=== PATIENT | male | born 1960 ===

== ENCOUNTER 2017-06-22 20:55 | Inpatient (IN) | payer MEDICAID ==
--- NOTE | 2017-06-22 21:32 | C.PDOC ---
History Of Present Illness 56 year old male with a Hx of HTN presents to the ER with a complaint of left sided back/flank pain for the past week that has worsened today. Patient reports he has hematuria last week. Denies fever or other complaints. Time Seen by Provider: 06/22/17 21:17 Chief Complaint (Nursing): Back Pain History Per: Patient History/Exam Limitations: no limitations Onset/Duration Of Symptoms: Days Current Symptoms Are (Timing): Still Present Quality Of Discomfort: Unable To Describe Previous Symptoms: None Associated Symptoms: None Exacerbating Factor(s): Nothing Recent travel outside of the [place]: No Past Medical History Reviewed: Historical Data, Nursing Documentation, Vital Signs Vital Signs: Last Vital Signs Temp 98.1 F 06/25/17 07:00 Pulse 88 06/25/17 07:00 Resp 20 06/25/17 07:00 BP 117/69 06/25/17 07:00 Pulse Ox 97 06/25/17 07:00 - Medical History PMH: HTN, Hypercholesterolemia Family History: States: Unknown Family Hx - Social History Hx Alcohol Use: No Hx Substance Use: No - Immunization History Hx Tetanus Toxoid Vaccination: No Hx Influenza Vaccination: No Hx Pneumococcal Vaccination: No Review Of Systems Constitutional: Negative for: Fever Cardiovascular: Negative for: Chest Pain, Palpitations Respiratory: Negative for: Cough, Shortness of Breath Genitourinary: Positive for: Hematuria Musculoskeletal: Positive for: Back Pain (Left) Physical Exam - Physical Exam Appears: Non-toxic Skin: Normal Color, Warm, Dry Head: Atraumatic, Normacephalic Eye(s): bilateral: Normal Inspection Oral Mucosa: Moist Chest: Symmetrical, No Tenderness Cardiovascular: Rhythm Regular Respiratory: Normal Breath Sounds, No Rales, No Rhonchi, No Wheezing Gastrointestinal/Abdominal: Soft, No Tenderness Back: Other (Left sided flank tenderness) Neurological/Psych: Oriented x3, Normal Speech ED Course And Treatment - Laboratory Results Result Diagrams: 06/25/17 07:23 06/25/17 07:23 O2 Sat by Pulse Oximetry: 97 (Room air) Pulse Ox Interpretation: Normal Medical Decision Making Medical Decision Making: ro renal colic, uti- labs imaging pending Plan: * CT abd/pel * Blood work * Urinalysis * Morphine ct shows e/o of diverticulitis- discussedw tih pmd. persistent pain, needs iv pain meds, and admisison. Disposition - Disposition Disposition: HOSPITALIZED Disposition Time: 01:00 Condition: STABLE - Clinical Impression Clinical Impression: Sigmoid diverticulitis - Scribe Statement The provider has reviewed the documentation as recorded by the Scriblynette Morin All medical record entries made by the Scribe were at my direction and personally dictated by me. I have reviewed the chart and agree that the record accurately reflects my personal performance of the history, physical exam, medical decision making, and the department course for this patient. I have also personally directed, reviewed, and agree with the discharge instructions and disposition. Decision To Admit - Pt Status Changed To: Hospital Disposition Of: Inpatient - Admit Certification Admit to Inpatient:: After my assessment, the patient will require hospitalization for at least two midnights. This is because of the severity of symptoms shown, intensity of services needed, and/or the medical risk in this patient being treated as an outpatient. - InPatient: Physician Admission Certification:: needs iv antibiotics persistent pain - . Bed Request Type: Regular Admitting Physician: Rell Hernández Patient Diagnosis: Sigmoid diverticulitis
[2017-06-22] MEDS ORDERED: Morphine 4 MG/ML VIAL ONE (21:33)
[2017-06-22 21:53] LABS: BASO % 0.4 % (0.0-2.0); EOS # 0.8 K/uL (0.0-0.7); EOS % 6.6 % (0.0-4.0); HEMOGLOBIN 15.3 g/dL (12.0-18.0); LYMPH # 1.9 K/uL (1.0-4.3); LYMPH % 16.6 % (20.0-40.0); MEAN CELL VOLUME 100.6 fL (80.0-94.0); MEAN CORPUSCULAR HGB CONC 34.8 g/dL (33.0-37.0); MEAN PLATELET VOLUME 10.1 fL (7.2-11.7); MONO # 0.7 K/uL (0.0-0.8); MONO % 6.1 % (0.0-10.0); NEUT # 8.1 K/uL (1.8-7.0); NEUT % 70.3 % (50.0-75.0); NRBC % 0.1 % (0.0-2.0); RBC 4.36 Mil/uL (4.40-5.90); WHITE BLOOD COUNT 11.5 K/uL (4.8-10.8)
[2017-06-22 22:00] LABS: ALB/GLOB RATIO 1.1 (1.0-2.1); ALBUMIN 4.1 g/dL (3.5-5.0); ALT/SGPT 36 U/L (21-72); AST/SGOT 21 U/L (17-59); BLOOD UREA NITROGEN 25 mg/dL (9-20); CALCIUM 9.8 mg/dl (8.6-10.4); GFR AFRICAN-AMERICAN > 60; GFR NON-AFRICAN AMERICAN 57; LIPASE 344 U/L (23-300)
[2017-06-22 22:45] LABS: SQUAMOUS EPITHIAL < 1 /hpf (0-5); URINE BACTERIA RARE (<OCC); URINE BILIRUBIN NEGATIVE (NEGATIVE); URINE BLOOD NEGATIVE (NEGATIVE); URINE CLARITY Hazy (Clear); URINE COLOR Amber (YELLOW); URINE GLUCOSE (UA) 1+ mg/dL (Normal); URINE LEUKOCYTE ESTERASE NEG Leu/uL (Negative); URINE PROTEIN 2+ mg/dL (NEGATIVE); URINE UROBILINOGEN NORMAL mg/dL (0.2-1.0)
--- NOTE | 2017-06-22 23:16 | CT ---
EXAM: CT Abdomen and Pelvis Without Intravenous Contrast CLINICAL HISTORY: 56 years old, male; Pain; Abdominal pain; Flank; Lower; Additional info: Abd pain TECHNIQUE: Axial computed tomography images of the abdomen and pelvis without intravenous contrast. All CT scans at this facility use one or more dose reduction techniques, viz.: automated exposure control; ma/kV adjustment per patient size (including targeted exams where dose is matched to indication; i.e. head); or iterative reconstruction technique. Coronal and sagittal reformatted images were created and reviewed. COMPARISON: No relevant prior studies available. FINDINGS: Lung bases: Unremarkable. No mass. No consolidation. Heart: Mild cardiomegaly. ABDOMEN: Liver: Hepatic steatosis. Gallbladder and bile ducts: Unremarkable. No calcified stones. No ductal dilation. Pancreas: Unremarkable. No ductal dilation. Spleen: Unremarkable. No splenomegaly. Adrenals: Unremarkable. No mass. Kidneys and ureters: Unremarkable. No obstructing stones. No hydronephrosis. Stomach and bowel: Sigmoid diverticulosis. Pericolonic inflammation. PELVIS: Appendix: No findings to suggest acute appendicitis. Bladder: Nonspecific bladder wall thickening. No stones. Reproductive: Enlarged prostate. Left hydrocele. ABDOMEN and PELVIS: Intraperitoneal space: Unremarkable. No free air. No significant fluid collection. Bones/joints: No acute fracture. No dislocation. Soft tissues: Unremarkable. Vasculature: Atherosclerotic vascular disease. No abdominal aortic aneurysm. Lymph nodes: Mildly enlarged pericolonic lymph nodes. IMPRESSION: 1. CT findings consistent with acute sigmoid diverticulitis. 2. Remainder of findings as above.
[2017-06-22] MEDS ORDERED: Piperacillin/Tazobact 3.375 gm 100 ML IVPB STA (23:17)
[2017-06-22] MEDS: Sodium Chloride 0.9% 1,000 ML IV SCH (23:30)
[2017-06-22] MEDS ORDERED: Piperacill/Tazo 3.375gm in Dex 3.375 GM/50 ML BAG IVPB STA (23:44)
[2017-06-22] MEDS ORDERED: Sodium Chloride 0.9% 1,000 ML ONE (23:48)
[2017-06-23] MEDS ORDERED: NABUMETONE 500 MG PO PRN ×2 (00:22→12:57)
[2017-06-23] MEDS: Morphine 4 MG/ML VIAL IVP PRN ×2 (02:05→09:58)
[2017-06-23] MEDS: metroNIDAZOLE IV 500 mg/100 ml 500 MG/100 ML BAG IVPB SCH ×3 (05:00→21:32)
[2017-06-23] MEDS: Piperacillin/Tazobact 3.375 GM in Sodium Chloride 100 ML IVPB SCH ×3 (06:10→18:48)
[2017-06-23 07:58] LABS: BASO % 0.3 % (0.0-2.0); EOS # 0.6 K/uL (0.0-0.7); EOS % 5.9 % (0.0-4.0); HEMOGLOBIN 14.2 g/dL (12.0-18.0); LYMPH # 2.4 K/uL (1.0-4.3); LYMPH % 23.3 % (20.0-40.0); MEAN CELL VOLUME 100.8 fL (80.0-94.0); MEAN CORPUSCULAR HEMOGLOBIN 35.7 pg (27.0-31.0); MEAN CORPUSCULAR HGB CONC 35.4 g/dL (33.0-37.0); MONO # 0.9 K/uL (0.0-0.8); MONO % 8.9 % (0.0-10.0); NEUT # 6.3 K/uL (1.8-7.0); NEUT % 61.6 % (50.0-75.0); NRBC % 0.1 % (0.0-2.0); RBC 3.98 Mil/uL (4.40-5.90); RED CELL DISTRIBUTION WIDTH 13.2 % (11.5-14.5); WHITE BLOOD COUNT 10.3 K/uL (4.8-10.8)
[2017-06-23 08:31] LABS: ALB/GLOB RATIO 1.2 (1.0-2.1); ALBUMIN 3.8 g/dL (3.5-5.0); ALT/SGPT 21 U/L (21-72); AST/SGOT 27 U/L (17-59); BLOOD UREA NITROGEN 21 mg/dL (9-20); CALCIUM 8.7 mg/dl (8.6-10.4); GFR AFRICAN-AMERICAN > 60; GFR NON-AFRICAN AMERICAN > 60; HDL CHOLESTEROL 26 mg/dL (30-70)
[2017-06-23 08:42] LABS: LDL CHOLESTEROL 126 mg/dL (0-129)
[2017-06-23] MEDS: Pantoprazole 40 mg EC Tab PO SCH (09:58)
[2017-06-23] MEDS: Enoxaparin 40 mg Syringe SC SCH (10:00)
[2017-06-23] MEDS: Sodium Chloride 0.9% 1,000 ML IV SCH (10:01)
--- NOTE | 2017-06-23 11:04 | CP.PCM.CON ---
History of Present Illness - History of Present Illness History of Present Illness: This is a 56 year old man with abdominal pain. Patient presented 06/22/17 with a one week history of left flank pain, which became progressively worse on the day of admission. He denies having nausea, vomiting, fever, difficulty swallowing, and heartburn. He reports having diarrhea after eating, three or four times a day. He denies having constipation and rectal bleeding. On evaluation in the ER, patient was afebrile. The WBC was slightly elevated at 11,500. CT scan of the abdomen showed sigmoid diverticulosis and pericolonic inflammatory changes consistent with diverticulitis. Review of Systems - Review of Systems All systems: reviewed and no additional remarkable complaints except - Constitutional Constitutional: absent: Fever - Cardiovascular Cardiovascular: absent: Chest Pain, Palpitations - Respiratory Respiratory: absent: Cough, Dyspnea - Gastrointestinal Gastrointestinal: Abdominal Pain, Diarrhea. absent: Constipation, Dysphagia, Heartburn, Hematochezia, Nausea, Vomiting - Genitourinary Genitourinary: Hematuria - Musculoskeletal Musculoskeletal: Back Pain Past Patient History - Past Medical History & Family History Past Medical History?: Yes - Past Social History Smoking Status: Never Smoked - CARDIAC Hx Cardiac Disorders: Yes Hx Hypercholesterolemia: Yes Hx Hypertension: Yes - PULMONARY Hx Respiratory Disorders: No - NEUROLOGICAL Hx Neurological Disorder: No - HEENT Hx HEENT Problems: No - RENAL Hx Chronic Kidney Disease: No - ENDOCRINE/METABOLIC Hx Endocrine Disorders: Yes Hx Diabetes Mellitus Type 2: Yes - HEMATOLOGICAL/ONCOLOGICAL Hx Blood Disorders: No - INTEGUMENTARY Hx Dermatological Problems: No - MUSCULOSKELETAL/RHEUMATOLOGICAL Hx Musculoskeletal Disorders: Yes Hx Falls: Yes Other/Comment: Lt rib fractured 04/2017 - GASTROINTESTINAL Hx Gastrointestinal Disorders: No - GENITOURINARY/GYNECOLOGICAL Hx Genitourinary Disorders: No - PSYCHIATRIC Hx Psychophysiologic Disorder: No Hx Substance Use: No - SURGICAL HISTORY Hx Surgeries: No - ANESTHESIA Hx Anesthesia: No Meds Allergies/Adverse Reactions: Allergies Allergy/AdvReac Type Severity Reaction Status Date / Time No Known Allergies Allergy Verified 06/22/17 21:13 - Medications Medications: Current Medications Aspirin (Ecotrin) 81 mg PO DAILY [facility] Last Admin: 06/23/17 09:57 Dose: 81 mg Baclofen (Lioresal) 10 mg PO Q12 PRN PRN Reason: Pain, moderate (4-7) Enoxaparin Sodium (Lovenox) 40 mg SC DAILY [facility] Last Admin: 06/23/17 10:00 Dose: 40 mg Gabapentin (Neurontin) 100 mg PO [facility] Glimepiride (Amaryl) 2 mg PO DAILY [facility] Last Admin: 06/23/17 10:23 Dose: Not Given Home Med (Nabumetone [Relafen]) 500 mg PO Q12 PRN PRN Reason: Pain, Mild (1-3) Hydralazine HCl (Apresoline) 10 mg PO DAILY [facility] Last Admin: 06/23/17 09:59 Dose: 10 mg Sodium Chloride (Sodium Chloride 0.9%) 1,000 mls @ 100 mls/hr IV .Q10H [facility] Last Admin: 06/23/17 10:01 Dose: 100 mls/hr Metronidazole (Flagyl) 500 mg in 100 mls @ 100 mls/hr IVPB Q8 [facility] PRN Reason: Protocol Last Admin: 06/23/17 05:00 Dose: 100 mls/hr Piperacillin Sod/Tazobactam (Sod 3.375 gm/ Sodium Chloride) 100 mls @ 200 mls/ hr IVPB Q6H [facility] PRN Reason: Protocol Last Admin: 06/23/17 06:10 Dose: 200 mls/hr Lisinopril (Zestril) 20 mg PO DAILY [facility] Last Admin: 06/23/17 10:23 Dose: 20 mg Metoprolol Tartrate (Lopressor) 50 mg PO DAILY [facility] Last Admin: 06/23/17 09:58 Dose: 50 mg Morphine Sulfate (Morphine) 3 mg IVP Q6 PRN PRN Reason: Pain, severe (8-10) Last Admin: 06/23/17 09:58 Dose: 3 mg Pantoprazole Sodium (Protonix Ec Tab) 40 mg PO DAILY [facility] Last Admin: 06/23/17 09:58 Dose: 40 mg Pneumococcal Polyvalent Vaccine (Pneumovax 23 Vaccine) 0.5 ml IM .ONCE ONE Stop: 06/24/17 10:01 Sertraline HCl (Zoloft) 50 mg PO [facility] Physical Exam - Constitutional Appears: No Acute Distress - Head Exam Head Exam: ATRAUMATIC - Eye Exam Eye Exam: EOMI, PERRL - Neck Exam Neck exam: Negative for: Lymphadenopathy, Thyromegaly - Respiratory Exam Respiratory Exam: NORMAL BREATHING PATTERN. absent: Rales, Rhonchi, Wheezes - Cardiovascular Exam Cardiovascular Exam: REGULAR RHYTHM, +S1, +S2. absent: Gallop, Rubs, Systolic Murmur - GI/Abdominal Exam GI & Abdominal Exam: Normal Bowel Sounds, Soft. absent: Mass, Organomegaly, Tenderness - Rectal Exam Rectal Exam: Deferred - Extremities Exam Extremities exam: Negative for: calf tenderness, pedal edema Results - Vital Signs Recent Vital Signs: Last Vital Signs Temp 98.2 F 06/23/17 07:37 Pulse 86 06/23/17 07:37 Resp 20 06/23/17 07:37 BP 168/93 H 06/23/17 07:37 Pulse Ox 96 06/23/17 07:37 - Labs Result Diagrams: 06/23/17 07:46 06/23/17 07:46 Labs: Laboratory Results - last 24 hr 06/22/17 06/22/17 06/22/17 21:44 21:44 21:44 WBC 11.5 H RBC 4.36 L Hgb 15.3 Hct 43.9 MCV 100.6 H MCH 35.0 H MCHC 34.8 RDW 13.0 Plt Count 251 MPV 10.1 Neut % (Auto) 70.3 Lymph % (Auto) 16.6 L [place] % (Auto) 6.1 Eos % (Auto) 6.6 H Baso % (Auto) 0.4 Neut # (Auto) 8.1 H Lymph # (Auto) 1.9 [place] # (Auto) 0.7 Eos # (Auto) 0.8 H Baso # (Auto) 0.0 PT 11.0 INR 1.0 APTT 31 Sodium 143 Potassium 3.9 Chloride 100 Carbon Dioxide 27 Anion Gap 20 BUN 25 H Creatinine 1.3 Est GFR ( Amer) > 60 Est GFR (Non-Af Amer) 57 Random Glucose 167 H Calcium 9.8 Total Bilirubin 0.9 AST 21 ALT 36 Alkaline Phosphatase 89 Total Protein 7.7 Albumin 4.1 Globulin 3.6 Albumin/Globulin Ratio 1.1 Triglycerides Cholesterol LDL Cholesterol Direct HDL Cholesterol Lipase 344 H Urine Color Urine Clarity Urine pH Ur Specific [place] Urine Protein Urine Glucose (UA) Urine Ketones Urine Blood Urine Nitrate Urine Bilirubin Urine Urobilinogen Ur Leukocyte Esterase Urine WBC (Auto) Urine RBC (Auto) Ur Squamous Epith Cells Urine Bacteria Hyaline Casts 06/22/17 06/23/17 06/23/17 22:36 07:46 07:46 WBC 10.3 RBC 3.98 L Hgb 14.2 Hct 40.1 MCV 100.8 H MCH 35.7 H MCHC 35.4 RDW 13.2 Plt Count 227 MPV 10.0 Neut % (Auto) 61.6 Lymph % (Auto) 23.3 [place] % (Auto) 8.9 Eos % (Auto) 5.9 H Baso % (Auto) 0.3 Neut # (Auto) 6.3 Lymph # (Auto) 2.4 [place] # (Auto) 0.9 H Eos # (Auto) 0.6 Baso # (Auto) 0.0 PT INR APTT Sodium 144 Potassium 4.0 Chloride 101 Carbon Dioxide 29 Anion Gap 19 BUN 21 H Creatinine 1.2 Est GFR ( Amer) > 60 Est GFR (Non-Af Amer) > 60 Random Glucose 148 H Calcium 8.7 Total Bilirubin 0.8 AST 27 ALT 21 D Alkaline Phosphatase 77 Total Protein 7.0 Albumin 3.8 Globulin 3.2 Albumin/Globulin Ratio 1.2 Triglycerides 209 H Cholesterol 185 LDL Cholesterol Direct 126 HDL Cholesterol 26 L Lipase Urine Color Aleksandra Urine Clarity Hazy Urine pH 5.0 Ur Specific Barton 1.025 Urine Protein 2+ H Urine Glucose (UA) 1+ H Urine Ketones Negative Urine Blood Negative Urine Nitrate Negative Urine Bilirubin Negative Urine Urobilinogen Normal Ur Leukocyte Esterase Neg Urine WBC (Auto) 1 Urine RBC (Auto) 3 Ur Squamous Epith Cells < 1 Urine Bacteria Rare Hyaline Casts 11-20 H Assessment & Plan (1) Sigmoid diverticulitis Assessment and Plan: Patient presented with a one-week history of abdominal pain, leukocytosis, changes of diverticulitis on CT scan. Zosyn and metronidazole have been started. Patient also reports having diarrhea, and stool studies will be ordered. Clear liquid diet will be ordered. Status: Acute
[2017-06-23 13:59] LABS: FERRITIN 72.1 ng/mL
[2017-06-23 14:03] LABS: IRON 99 ug/dL (49-181)
[2017-06-23 14:13] LABS: % IRON SATURATION 32 (20-55); TOTAL IRON BINDING CAPACITY 311 ug/dL (250-450)
[2017-06-23 14:30] LABS: FOLATE 7.6 ng/mL
[2017-06-23] MEDS ORDERED: Morphine 4 MG/ML VIAL IVP PRN (16:35)
--- NOTE | 2017-06-23 20:54 | CP.PCM.CON ---
History of Present Illness - History of Present Illness History of Present Illness: INFECTIOUS DISEASE CONSULT. HPI; 56 year old man with abdominal pain. Patient presented 06/22/17 with a one week history of left flank pain,and back pain which became progressively worse 3 days prior to admission. He denies having nausea, vomiting, fever, difficulty swallowing, and heartburn. He reports having diarrhea after eating, three or four times a day. He denies having constipation and rectal bleeding.Patient states the Back pain started suddenly, and is now radiating to the left flank region. Patient denies any tingling or loss of sensation. On evaluation in the ER, patient was afebrile. The WBC was slightly elevated at 11,500. CT scan of the abdomen showed ACUTE SIGMOID DIVERTICULITIS/AND ENLARGED PROSTATE/HYDROCEOLE. PATIENT WAS EMPIRICALLY STARTED ON IV ZOSYN 3.375 EVERY 6 HOURLY AND iv fLAGYL 500 EVERY 8.HRLY. INFECTIOUS DISEASE CONSUL REQUESTED BY PMD FOR ABDOMINAL PAINS,BACK PAIN AND DIVERTICULITIS. PATIENT DENIES LIFTING UP ANY HEAVY WEIGHT. PATIENT ALSO COMPLAINS OF DYSURIA AND HEMATURIA ON PRESENTATION. PATIENT DENIES HISTORY OFF KIDNEY STONES. PATIENT DENIES ANY URI OR SORE THROAT. PATIENT DENIES ANY COUGH/OR SHORTNESS OF BREATH.DENIES ANY CHEST PAIN OR PALPITATIONS. NO HISTORY OFF RECENT SICK CONTACTS OR RECENT TRAVEL. PMH: HTN, Hypercholesterolemia Family History: States: Unknown Family Hx - Social History Hx Alcohol Use: No Hx Substance Use: No - Immunization History Hx Tetanus Toxoid Vaccination: No Hx Influenza Vaccination: No Hx Pneumococcal Vaccination: No Review Of Systems Constitutional: Negative for: Fever Cardiovascular: Negative for: Chest Pain, Palpitations Respiratory: Negative for: Cough, Shortness of Breath Genitourinary: Positive for: Hematuria Musculoskeletal: Positive for: Back Pain (Left) Review of Systems - Constitutional Constitutional: absent: Chills, Fever - EENT Eyes: absent: Blurred Vision, Change in Vision Ears: absent: Ear Discharge, Ear Pain Nose/Mouth/Throat: absent: Mouth Lesions - Cardiovascular Cardiovascular: absent: Chest Pain, Dyspnea - Respiratory Respiratory: absent: Cough (esr IS ONLY 41) - Gastrointestinal Gastrointestinal: Abdominal Pain (LEFT FLANK/LEFT LOWER QUADRANT.), Diarrhea. absent: Hematemesis, Melena, Nausea, Vomiting - Genitourinary Genitourinary: Dysuria, Flank Pain, Hematuria. absent: Freq UTI, Hx /Renal Surgery - Neurological Neurological: absent: Focal Weakness, Paresthesias, Radicular Pain, Sensory Deficit, Weakness - Hematologic/Lymphatic Hematologic: As Per HPI. absent: Easy Bleeding, Easy Bruising, Lymphadenopathy Past Patient History - Past Medical History & Family History Past Medical History?: Yes - Past Social History Smoking Status: Never Smoked - CARDIAC Hx Cardiac Disorders: Yes Hx Hypercholesterolemia: Yes Hx Hypertension: Yes - PULMONARY Hx Respiratory Disorders: No - NEUROLOGICAL Hx Neurological Disorder: No - HEENT Hx HEENT Problems: No - RENAL Hx Chronic Kidney Disease: No - ENDOCRINE/METABOLIC Hx Endocrine Disorders: Yes Hx Diabetes Mellitus Type 2: Yes - HEMATOLOGICAL/ONCOLOGICAL Hx Blood Disorders: No - INTEGUMENTARY Hx Dermatological Problems: No - MUSCULOSKELETAL/RHEUMATOLOGICAL Hx Musculoskeletal Disorders: Yes Hx Falls: Yes Other/Comment: Lt rib fractured 04/2017 - GASTROINTESTINAL Hx Gastrointestinal Disorders: No - GENITOURINARY/GYNECOLOGICAL Hx Genitourinary Disorders: No - PSYCHIATRIC Hx Psychophysiologic Disorder: No Hx Substance Use: No - SURGICAL HISTORY Hx Surgeries: No - ANESTHESIA Hx Anesthesia: No Meds Allergies/Adverse Reactions: Allergies Allergy/AdvReac Type Severity Reaction Status Date / Time No Known Allergies Allergy Verified 06/22/17 21:13 - Medications Medications: Current Medications Aspirin (Ecotrin) 81 mg PO DAILY [facility] Last Admin: 06/23/17 09:57 Dose: 81 mg Baclofen (Lioresal) 10 mg PO Q12 PRN PRN Reason: Pain, moderate (4-7) Enoxaparin Sodium (Lovenox) 40 mg SC DAILY [facility] Last Admin: 06/23/17 10:00 Dose: 40 mg Gabapentin (Neurontin) 100 mg PO HS [facility] Glimepiride (Amaryl) 2 mg PO DAILY [facility] Last Admin: 06/23/17 10:23 Dose: Not Given Home Med (Nabumetone [Relafen]) 500 mg PO Q12 PRN PRN Reason: Pain, Mild (1-3) Hydralazine HCl (Apresoline) 50 mg PO Q8 [facility] Metronidazole (Flagyl) 500 mg in 100 mls @ 100 mls/hr IVPB Q8 [facility] PRN Reason: Protocol Last Admin: 06/23/17 14:38 Dose: 100 mls/hr Piperacillin Sod/Tazobactam (Sod 3.375 gm/ Sodium Chloride) 100 mls @ 200 mls/ hr IVPB Q6H [facility] PRN Reason: Protocol Last Admin: 06/23/17 18:48 Dose: 200 mls/hr Lisinopril (Zestril) 20 mg PO DAILY [facility] Last Admin: 06/23/17 10:23 Dose: 20 mg Metoprolol Succinate (Toprol Xl) 50 mg PO Q12 [facility] Pantoprazole Sodium (Protonix Ec Tab) 40 mg PO DAILY [facility] Last Admin: 06/23/17 09:58 Dose: 40 mg Pneumococcal Polyvalent Vaccine (Pneumovax 23 Vaccine) 0.5 ml IM .ONCE ONE Stop: 06/24/17 10:01 Sertraline HCl (Zoloft) 50 mg PO HS [facility] Physical Exam - Constitutional Appears: No Acute Distress - Head Exam Head Exam: NORMAL INSPECTION - Eye Exam Eye Exam: EOMI, PERRL. absent: Scleral icterus - ENT Exam ENT Exam: Normal Oropharynx - Respiratory Exam Respiratory Exam: Clear to Auscultation Bilateral - Cardiovascular Exam Cardiovascular Exam: REGULAR RHYTHM, +S1, +S2 - GI/Abdominal Exam GI & Abdominal Exam: Normal Bowel Sounds, Soft, Tenderness (LLQ. sTUDIES PENDING). absent: Organomegaly - Extremities Exam Extremities exam: Positive for: pedal pulses present. Negative for: calf tenderness, pedal edema - Back Exam Back exam: absent: CVA tenderness (L) - Neurological Exam Neurological exam: Alert, CN II-XII Intact, Oriented x3, Reflexes Normal - Psychiatric Exam Psychiatric exam: Normal Mood - Skin Skin Exam: Normal Color, Warm Results - Vital Signs Recent Vital Signs: Last Vital Signs Temp 97.6 F 06/23/17 19:00 Pulse 84 06/23/17 19:00 Resp 20 06/23/17 19:00 BP 156/91 H 06/23/17 19:40 Pulse Ox 98 06/23/17 19:00 - Labs Result Diagrams: 06/24/17 08:01 06/24/17 08:01 Labs: Laboratory Results - last 24 hr 06/22/17 06/22/17 06/22/17 21:44 21:44 21:44 WBC 11.5 H RBC 4.36 L Hgb 15.3 Hct 43.9 MCV 100.6 H MCH 35.0 H MCHC 34.8 RDW 13.0 Plt Count 251 MPV 10.1 Neut % (Auto) 70.3 Lymph % (Auto) 16.6 L [place] % (Auto) 6.1 Eos % (Auto) 6.6 H Baso % (Auto) 0.4 Neut # (Auto) 8.1 H Lymph # (Auto) 1.9 [place] # (Auto) 0.7 Eos # (Auto) 0.8 H Baso # (Auto) 0.0 Retic Count PT 11.0 INR 1.0 APTT 31 Sodium 143 Potassium 3.9 Chloride 100 Carbon Dioxide 27 Anion Gap 20 BUN 25 H Creatinine 1.3 Est GFR ( Amer) > 60 Est GFR (Non-Af Amer) 57 POC Glucose (mg/dL) Random Glucose 167 H Calcium 9.8 Iron TIBC % Saturation Ferritin Total Bilirubin 0.9 AST 21 ALT 36 Alkaline Phosphatase 89 Total Protein 7.7 Albumin 4.1 Globulin 3.6 Albumin/Globulin Ratio 1.1 Triglycerides Cholesterol LDL Cholesterol Direct HDL Cholesterol Lipase 344 H Vitamin B12 Folate Urine Color Urine Clarity Urine pH Ur Specific [place] Urine Protein Urine Glucose (UA) Urine Ketones Urine Blood Urine Nitrate Urine Bilirubin Urine Urobilinogen Ur Leukocyte Esterase Urine WBC (Auto) Urine RBC (Auto) Ur Squamous Epith Cells Urine Bacteria Hyaline Casts 06/22/17 06/23/17 06/23/17 22:36 07:21 07:46 WBC 10.3 RBC 3.98 L Hgb 14.2 Hct 40.1 MCV 100.8 H MCH 35.7 H MCHC 35.4 RDW 13.2 Plt Count 227 MPV 10.0 Neut % (Auto) 61.6 Lymph % (Auto) 23.3 [place] % (Auto) 8.9 Eos % (Auto) 5.9 H Baso % (Auto) 0.3 Neut # (Auto) 6.3 Lymph # (Auto) 2.4 [place] # (Auto) 0.9 H Eos # (Auto) 0.6 Baso # (Auto) 0.0 Retic Count PT INR APTT Sodium Potassium Chloride Carbon Dioxide Anion Gap BUN Creatinine Est GFR ( Amer) Est GFR (Non-Af Amer) POC Glucose (mg/dL) 136 H Random Glucose Calcium Iron TIBC % Saturation Ferritin Total Bilirubin AST ALT Alkaline Phosphatase Total Protein Albumin Globulin Albumin/Globulin Ratio Triglycerides Cholesterol LDL Cholesterol Direct HDL Cholesterol Lipase Vitamin B12 Folate Urine Color Aleksandra Urine Clarity Hazy Urine pH 5.0 Ur Specific [place] 1.025 Urine Protein 2+ H Urine Glucose (UA) 1+ H Urine Ketones Negative Urine Blood Negative Urine Nitrate Negative Urine Bilirubin Negative Urine Urobilinogen Normal Ur Leukocyte Esterase Neg Urine WBC (Auto) 1 Urine RBC (Auto) 3 Ur Squamous Epith Cells < 1 Urine Bacteria Rare Hyaline Casts 11-20 H 06/23/17 06/23/17 06/23/17 07:46 11:14 12:12 WBC RBC Hgb Hct MCV MCH MCHC RDW Plt Count MPV Neut % (Auto) Lymph % (Auto) [place] % (Auto) Eos % (Auto) Baso % (Auto) Neut # (Auto) Lymph # (Auto) [place] # (Auto) Eos # (Auto) Baso # (Auto) Retic Count 0.7 PT INR APTT Sodium 144 Potassium 4.0 Chloride 101 Carbon Dioxide 29 Anion Gap 19 BUN 21 H Creatinine 1.2 Est GFR ( Amer) > 60 Est GFR (Non-Af Amer) > 60 POC Glucose (mg/dL) 161 H Random Glucose 148 H Calcium 8.7 Iron TIBC % Saturation Ferritin 72.1 Total Bilirubin 0.8 AST 27 ALT 21 D Alkaline Phosphatase 77 Total Protein 7.0 Albumin 3.8 Globulin 3.2 Albumin/Globulin Ratio 1.2 Triglycerides 209 H Cholesterol 185 LDL Cholesterol Direct 126 HDL Cholesterol 26 L Lipase Vitamin B12 446 Folate 7.6 Urine Color Urine Clarity Urine pH Ur Specific [place] Urine Protein Urine Glucose (UA) Urine Ketones Urine Blood Urine Nitrate Urine Bilirubin Urine Urobilinogen Ur Leukocyte Esterase Urine WBC (Auto) Urine RBC (Auto) Ur Squamous Epith Cells Urine Bacteria Hyaline Casts 06/23/17 06/23/17 13:22 16:32 WBC RBC Hgb Hct MCV MCH MCHC RDW Plt Count MPV Neut % (Auto) Lymph % (Auto) [place] % (Auto) Eos % (Auto) Baso % (Auto) Neut # (Auto) Lymph # (Auto) [place] # (Auto) Eos # (Auto) Baso # (Auto) Retic Count PT INR APTT Sodium Potassium Chloride Carbon Dioxide Anion Gap BUN Creatinine Est GFR ( Amer) Est GFR (Non-Af Amer) POC Glucose (mg/dL) 188 H Random Glucose Calcium Iron 99 TIBC 311 % Saturation 32 Ferritin Total Bilirubin AST ALT Alkaline Phosphatase Total Protein Albumin Globulin Albumin/Globulin Ratio Triglycerides Cholesterol LDL Cholesterol Direct HDL Cholesterol Lipase Vitamin B12 Folate Urine Color Urine Clarity Urine pH Ur Specific [place] Urine Protein Urine Glucose (UA) Urine Ketones Urine Blood Urine Nitrate Urine Bilirubin Urine Urobilinogen Ur Leukocyte Esterase Urine WBC (Auto) Urine RBC (Auto) Ur Squamous Epith Cells Urine Bacteria Hyaline Casts - Imaging and Cardiology CT scan - abdomen/PELVIS WITHOUT BY MOUTH OR iv CONTRAST Status: Report reviewed by me (SEE FULL REPORT.) Assessment & Plan (1) Sigmoid diverticulitis Assessment and Plan: CONTINUE IV ABX ORDERED . DIARRHOEA W/U PER GI. Status: Acute (2) Back pain Assessment and Plan: LUMBOSACRAL SPINE R/O LYTIC LEISION. Status: Acute (3) BPH (benign prostatic hyperplasia) Assessment and Plan: CHECK PSA(TOTAL AND FREE ) Status: Acute (4) Hydrocele Assessment and Plan: PT HAS LT HYDROCEOLEON CT ABDOMEN /AND PELVIS. C/O LOW BACK PAIN . WILL ORDER TESTICULAR US +VE HYDRCEOLE. Status: Acute
[2017-06-23] MEDS: Metoprolol Succinate 50 mg XL Tab PO SCH (21:28)
[2017-06-24] MEDS: Piperacillin/Tazobact 3.375 GM in Sodium Chloride 100 ML IVPB SCH (00:07)
[2017-06-24] MEDS: metroNIDAZOLE IV 500 mg/100 ml 500 MG/100 ML BAG IVPB SCH ×3 (05:52→21:22)
[2017-06-24] MEDS: Piperacill/Tazo 3.375gm in Dex 3.375 GM/50 ML BAG IVPB SCH ×3 (07:04→18:32)
[2017-06-24 08:15] LABS: BASO % 0.3 % (0.0-2.0); EOS # 0.5 K/uL (0.0-0.7); EOS % 4.7 % (0.0-4.0); HEMOGLOBIN 15.1 g/dL (12.0-18.0); LYMPH # 1.9 K/uL (1.0-4.3); LYMPH % 19.9 % (20.0-40.0); MEAN CELL VOLUME 101.6 fL (80.0-94.0); MEAN CORPUSCULAR HEMOGLOBIN 35.7 pg (27.0-31.0); MEAN CORPUSCULAR HGB CONC 35.1 g/dL (33.0-37.0); MEAN PLATELET VOLUME 9.7 fL (7.2-11.7); MONO # 0.8 K/uL (0.0-0.8); MONO % 8.5 % (0.0-10.0); NEUT # 6.3 K/uL (1.8-7.0); NEUT % 66.6 % (50.0-75.0); RBC 4.23 Mil/uL (4.40-5.90); RED CELL DISTRIBUTION WIDTH 12.9 % (11.5-14.5); WHITE BLOOD COUNT 9.5 K/uL (4.8-10.8)
[2017-06-24 08:35] LABS: ALB/GLOB RATIO 1.2 (1.0-2.1); ALBUMIN 4.1 g/dL (3.5-5.0); ALT/SGPT 29 U/L (21-72); AST/SGOT 32 U/L (17-59); BLOOD UREA NITROGEN 19 mg/dL (9-20); GFR AFRICAN-AMERICAN > 60; GFR NON-AFRICAN AMERICAN > 60
[2017-06-24] MEDS: Pantoprazole 40 mg EC Tab PO SCH (09:15)
[2017-06-24] MEDS: Metoprolol Succinate 50 mg XL Tab PO SCH ×2 (09:15→21:21)
[2017-06-24] MEDS: Enoxaparin 40 mg Syringe SC SCH (09:16)
[2017-06-24] MEDS ORDERED: Pneumococcal 23-Valent Vaccine IM ONE (10:00)
--- NOTE | 2017-06-24 10:22 | CP.PCM.PN ---
Subjective - Date & Time of Evaluation Date of Evaluation: 06/24/17 Time of Evaluation: 10:19 - Subjective Subjective: Patient states that the pain continues to improve. He is tolerating the clear liquid diet. He denies having nausea and vomiting. He has not had any bowel movements so far today. Objective - Vital Signs/Intake and Output Vital Signs (last 24 hours): Temp Pulse Resp BP Pulse Ox 98.0 F 74 18 144/71 98 06/24/17 07:20 06/24/17 07:25 06/24/17 07:20 06/24/17 07:20 06/24/17 07:20 Intake and Output: 06/24/17 06/24/17 06:59 18:59 Output Total 700 Balance -700 - Medications Medications: Current Medications Aspirin (Ecotrin) 81 mg PO DAILY [facility] Last Admin: 06/24/17 09:19 Dose: 81 mg Baclofen (Lioresal) 10 mg PO Q12 PRN PRN Reason: Pain, moderate (4-7) Enoxaparin Sodium (Lovenox) 40 mg SC DAILY [facility] Last Admin: 06/24/17 09:16 Dose: 40 mg Gabapentin (Neurontin) 100 mg PO HS [facility] Last Admin: 06/23/17 21:28 Dose: 100 mg Glimepiride (Amaryl) 2 mg PO DAILY [facility] Last Admin: 06/24/17 09:15 Dose: 2 mg Home Med (Nabumetone [Relafen]) 500 mg PO Q12 PRN PRN Reason: Pain, Mild (1-3) Hydralazine HCl (Apresoline) 50 mg PO Q8 [facility] Last Admin: 06/24/17 05:51 Dose: 50 mg Metronidazole (Flagyl) 500 mg in 100 mls @ 100 mls/hr IVPB Q8 [facility] PRN Reason: Protocol Last Admin: 06/24/17 05:52 Dose: 100 mls/hr Piperacillin Sod/Tazobactam Sod (Zosyn 3.375 Gm Iv Premix) 3.375 gm in 50 mls @ 100 mls/hr IVPB Q6H [facility] PRN Reason: Protocol Last Admin: 06/24/17 07:04 Dose: 100 mls/hr Lisinopril (Zestril) 20 mg PO DAILY [facility] Last Admin: 06/24/17 09:15 Dose: 20 mg Metoprolol Succinate (Toprol Xl) 50 mg PO Q12 [facility] Last Admin: 06/24/17 09:15 Dose: 50 mg Pantoprazole Sodium (Protonix Ec Tab) 40 mg PO DAILY [facility] Last Admin: 06/24/17 09:15 Dose: 40 mg Sertraline HCl (Zoloft) 50 mg PO HS [facility] Last Admin: 06/23/17 21:28 Dose: 50 mg - Labs Labs: 06/24/17 08:01 06/24/17 08:01 PT 11.0 SECONDS (9.7-12.2) 06/22/17 21:44 INR 1.0 06/22/17 21:44 APTT 31 SECONDS (21-34) 06/22/17 21:44 - Constitutional Appears: No Acute Distress - Head Exam Head Exam: ATRAUMATIC, NORMOCEPHALIC - Eye Exam Eye Exam: EOMI, PERRL - Neck Exam Neck Exam: absent: Lymphadenopathy, Thyromegaly - Respiratory Exam Respiratory Exam: NORMAL BREATHING PATTERN. absent: Rales, Rhonchi, Wheezes - Cardiovascular Exam Cardiovascular Exam: REGULAR RHYTHM, +S1, +S2. absent: Gallop, Rubs, Murmur - GI/Abdominal Exam GI & Abdominal Exam: Soft, Normal Bowel Sounds. absent: Tenderness, Mass, Organomegaly - Rectal Exam Rectal Exam: Deferred - Extremities Exam Extremities Exam: absent: Calf Tenderness, Pedal Edema Assessment and Plan (1) Sigmoid diverticulitis Assessment & Plan: Patient has less pain and is tolerating the clear liquid diet. Will advance diet and observe. Patient should have colonoscopy with Dr. Goddard as an outpatient in six to eight weeks. Status: Acute
--- NOTE | 2017-06-24 11:47 | HP ---
HISTORY OF PRESENT ILLNESS: This is a 56-year-old male with history of hypertension, anxiety disorder, and hyperlipidemia. The patient came to the hospital because of complaining of severe lower abdominal pain and nausea. The patient has pain on and off for the last week, mostly located in the left flank, and the patient is still passing bloody urine last week, but today during admission, the patient has this severe pain and came to the hospital and patient was evaluated in the emergency room and the patient was admitted. PAST MEDICAL HISTORY: High blood pressure, history of hypertension, hyperlipidemia, and anxiety disorder. SOCIAL HISTORY: The patient is , has children. No alcohol abuse. No substance use. REVIEW OF SYSTEMS: RESPIRATORY: The patient denies any shortness of breath. CARDIOVASCULAR: The patient denies any chest pain or palpitations. GI: Nausea and abdominal pain. : The patient denies any dysuria. NEUROLOGIC: The patient is weak. PSYCHIATRIC: The patient appears to being very anxious as he feels that his head is exploding. PHYSICAL EXAMINATION: GENERAL: The patient is alert, awake, and oriented x3. VITAL SIGNS: The patient has now blood pressure 199/123, pulse is 86, respirations 20, and temperature was 98.2. NECK: Supple. HEENT: Head is normocephalic. LUNGS: Clear. HEART: Regular rate and rhythm. Positive S1 and S2. No S3 gallop rhythm. Positive murmur. ABDOMEN: Soft. Mild tenderness in the left lower quadrant and positive bowel sounds. EXTREMITIES: Legs, no edema. LABORATORY DATA: The patient has some tests done. WBC was 11.5, hemoglobin 16.2, hematocrit is 42.9, and platelets 151. On admission, the chemistry showed sodium 142, potassium 3.9, chloride 100, bicarb is 27, BUN 25, creatinine 1.3, glucose is 167, and lipase 344. The patient also has a CAT scan of the abdomen and pelvis that was significant for acute sigmoid diverticulitis. IMPRESSION: The patient admitted with the diagnoses of, 1. Acute sigmoid diverticulitis. 2. Hypertensive crisis. 3. Anxiety. PLAN: So, the patient will have a consult with Dr. Sav Forte of ID and Dr. Goddard of GI. Plan is that we are going adjust the blood pressure medication and hydralazine will be two times a day. The patient is going to start with clonidine and we are going to at this point and the case was reviewed and discussed with the nurse, and also the metoprolol will be increased to 50 mg every 12 hours and hydralazine also 2 times a day. Lasix will be given twice a day. Rell Hernández MD
[2017-06-24] MEDS: Naproxen 550 mg Tab PO SCH ×2 (13:35→21:20)
[2017-06-24 16:14] VITALS: RESP 20; O2SAT 97
--- NOTE | 2017-06-24 17:15 | PN ---
DATE: SUBJECTIVE: Today, the patient is alert and awake and has much less pain to the abdomen and back, negative shortness of breath. No chest pain. PHYSICAL EXAMINATION: VITAL SIGNS: Today, the blood pressure is 144/71 and normal. Patient's pulse is 83, respirations 18, temperature 98 degrees Fahrenheit. NECK: Supple. No JVD. LUNGS: Clear. HEART: Regular rate and rhythm with positive murmur with a sharp apical beat. ABDOMEN: Soft and obese. Mild tenderness in the left lower quadrant. BACK: Tenderness to the low back. EXTREMITIES: There is no edema. LABORATORY DATA: Blood tests done that showed that his WBC is 9.5, hemoglobin 16.3, hematocrit 43, platelet is 260. Chemistries showed sodium 145, potassium 3.7, chloride 99, bicarb 30, BUN 19, creatinine 1.2, glucose 180, calcium 9. was 1.2. PLAN: We are going to continue medical therapy and labs tomorrow and also do the lipase and the patient is admitted. Rell Hernández MD
[2017-06-25] MEDS: Piperacill/Tazo 3.375gm in Dex 3.375 GM/50 ML BAG IVPB SCH ×2 (01:42→06:10)
[2017-06-25] MEDS: metroNIDAZOLE IV 500 mg/100 ml 500 MG/100 ML BAG IVPB SCH (05:00)
[2017-06-25 07:35] LABS: BASO % 0.4 % (0.0-2.0); EOS # 0.9 K/uL (0.0-0.7); EOS % 8.4 % (0.0-4.0); HEMOGLOBIN 15.5 g/dL (12.0-18.0); LYMPH # 2.3 K/uL (1.0-4.3); LYMPH % 22.4 % (20.0-40.0); MEAN CELL VOLUME 101.6 fL (80.0-94.0); MEAN CORPUSCULAR HEMOGLOBIN 35.6 pg (27.0-31.0); MEAN PLATELET VOLUME 9.8 fL (7.2-11.7); MONO # 0.8 K/uL (0.0-0.8); NEUT # 6.2 K/uL (1.8-7.0); NEUT % 60.8 % (50.0-75.0); NRBC % 0.1 % (0.0-2.0); RBC 4.36 Mil/uL (4.40-5.90); RED CELL DISTRIBUTION WIDTH 13.1 % (11.5-14.5); WHITE BLOOD COUNT 10.2 K/uL (4.8-10.8)
[2017-06-25 07:56] VITALS: BP 117/69; TEMP 98.1
[2017-06-25 08:14] LABS: ALB/GLOB RATIO 1.2 (1.0-2.1); ALT/SGPT 32 U/L (21-72); AST/SGOT 39 U/L (17-59); BLOOD UREA NITROGEN 20 mg/dL (9-20); CALCIUM 9.1 mg/dl (8.6-10.4); GFR AFRICAN-AMERICAN > 60; GFR NON-AFRICAN AMERICAN 57; LIPASE 106 U/L (23-300)
[2017-06-25 08:15] VITALS: PULSE 88
[2017-06-25] MEDS: Metoprolol Succinate 50 mg XL Tab PO SCH (09:18)
[2017-06-25] MEDS: Enoxaparin 40 mg Syringe SC SCH (09:19)
[2017-06-25] MEDS: Pantoprazole 40 mg EC Tab PO SCH (09:19)
[2017-06-25] MEDS: Naproxen 550 mg Tab PO SCH (09:19)
--- NOTE | 2017-06-25 10:33 | RAD ---
PROCEDURE: Radiographs of the Lumbar Spine. HISTORY: LOW BACKPAIN COMPARISON: Correlations made to CT scan of the abdomen pelvis dated 06/22/2017. FINDINGS: BONES: Multilevel anterior endplate osteophytic changes. Normal alignment. No listhesis. No fracture. DISC SPACES: Mild multilevel narrowing. OTHER FINDINGS: None. IMPRESSION: No acute fracture. Multilevel degenerative changes.
--- NOTE | 2017-06-25 12:32 | CP.PCM.PN ---
Subjective - Date & Time of Evaluation Date of Evaluation: 06/25/17 Time of Evaluation: 12:32 - Subjective Subjective: PATIENT WAS ADMITTED FOR DIVERTICULITIS DENIES ABD PAIN/ CHEST PAIN OR SOB NO SIGN OF DISTRESS NOTED Objective - Vital Signs/Intake and Output Vital Signs (last 24 hours): Temp Pulse Resp BP Pulse Ox 98.1 F 88 20 117/69 97 06/25/17 07:00 06/25/17 07:00 06/25/17 07:00 06/25/17 07:00 06/25/17 08:48 Intake and Output: 06/25/17 06/25/17 06:59 18:59 Intake Total 450 Balance 450 - Medications Medications: Current Medications Aspirin (Ecotrin) 81 mg PO DAILY [facility] Last Admin: 06/25/17 09:19 Dose: 81 mg Baclofen (Lioresal) 10 mg PO Q12 PRN PRN Reason: Pain, moderate (4-7) Enoxaparin Sodium (Lovenox) 40 mg SC DAILY [facility] Last Admin: 06/25/17 09:19 Dose: 40 mg Gabapentin (Neurontin) 100 mg PO HS [facility] Last Admin: 06/24/17 21:21 Dose: 100 mg Glimepiride (Amaryl) 2 mg PO DAILY [facility] Last Admin: 06/25/17 09:19 Dose: 2 mg Hydralazine HCl (Apresoline) 50 mg PO Q8 [facility] Last Admin: 06/25/17 06:10 Dose: 50 mg Metronidazole (Flagyl) 500 mg in 100 mls @ 100 mls/hr IVPB Q8 [facility] PRN Reason: Protocol Last Admin: 06/25/17 05:00 Dose: 100 mls/hr Piperacillin Sod/Tazobactam Sod (Zosyn 3.375 Gm Iv Premix) 3.375 gm in 50 mls @ 100 mls/hr IVPB Q6H [facility] PRN Reason: Protocol Last Admin: 06/25/17 06:10 Dose: 100 mls/hr Insulin Aspart (Novolog) 0 unit SC ACHS [facility] PRN Reason: Protocol Lisinopril (Zestril) 20 mg PO DAILY [facility] Last Admin: 06/25/17 09:18 Dose: 20 mg Metoprolol Succinate (Toprol Xl) 50 mg PO Q12 [facility] Last Admin: 06/25/17 09:18 Dose: 50 mg Naproxen (Anaprox Ds) 550 mg PO Q12 [facility] Last Admin: 06/25/17 09:19 Dose: 550 mg Pantoprazole Sodium (Protonix Ec Tab) 40 mg PO DAILY [facility] Last Admin: 06/25/17 09:19 Dose: 40 mg Sertraline HCl (Zoloft) 50 mg PO HS [facility] Last Admin: 06/24/17 21:21 Dose: 50 mg - Labs Labs: 06/25/17 07:23 06/25/17 07:23 PT 11.0 SECONDS (9.7-12.2) 06/22/17 21:44 INR 1.0 06/22/17 21:44 APTT 31 SECONDS (21-34) 06/22/17 21:44 Assessment and Plan - Assessment and Plan (Free Text) Assessment: PATIENT SEEN AND EXAMINED AT THE BEDSIDE LUNG SOUND CLEAR CORINNE POSITIVE BOWEL SOUND ALL QUADRANT PATIENT TOLERATED ADV DIET LUMBAR X RAY SHOW NO ACUTE FRACTURE/ MULTILEVEL DEGENERATIVE CHANGES LEFT HYDROCELE NOTED ON THE CT ABD AND PELVIC US ORDER AND PATIENT WILL F/U RESULT AT DR MORIN OFFICE LIPASE IS [address] MORIN WHO CLEAR PATIENT FOR DC FOLLOW UP WITH DR MORIN AT HIS OFFICE NEXT ON SUNDAY ---CALL FOR APPOINTMENT F/U WITH YOUR US RESULT AT YOUR VISIT FOLLOW UP WITH DR DOUGHERTY AT HIS OFFICE IN 4-6 WEEKS --CALL FOR APPOINTMENT FOR OUT PATIENT COLONOSCOPY CONTINUE ALL YOUR HOME MEDICATION NEW PRESCRIPTION GIVEN FLAGYL 500 MG BY MOUTH EVERY 8 HOURS FOR 7 DAYS AUGMENTIN 500 BY MOUTH EVERY 8 HOURS FOR 7 DAYS BACID ONE TAB DAILY FOR 7 DAYS ACTIVITY TOLERATED CALL DR MORIN OR GO TO THE EMERGENCY ROOM IF SYMPTOMS RETURN OR WORSENING DISCUSS WITH PATIENT WHO AGREE AND VERBALIZED UNDERSTANDING
[2017-06-25 12:46] LABS: C DIFF TOXIN A B NEGATIVE (NEGATIVE)
--- NOTE | 2017-06-25 15:00 | US ---
HISTORY: HYDROCELE TECHNIQUE: Realtime sonography through the scrotum with color and doppler flow. COMPARISON: None Available. FINDINGS: RIGHT TESTICLE: Measures 4.4 x 2.0 x 2.9 cm. Normal echotexture and flow. RIGHT EPIDIDYMIS: Normal size, morphology and vascularity. LEFT TESTICLE: Measures 4.3 x 2.2 x 3.5 cm. Normal echotexture and flow. LEFT EPIDIDYMIS: The epididymis is not discretely visualized. There is a large cyst in the left hemiscrotum separate from the testicle. It does not surround the testicle and does not represent hydrocele. This measures approximately 3.9 x 7.4 by 6.0 cm. There are low-level internal echoes suggestive of a spermatocele. There is a solitary septations seen within this fluid collection. HYDROCELE: None. VARICOCELE: None. OTHER FINDINGS: None. IMPRESSION: Suspect large left spermatocele, 7.4 cm greatest dimension. No additional abnormality identified.
[2017-06-25] MEDS ORDERED: (Novolog) Insulin Aspart, Recombinant 100 u/ml 10 ml vial SC SCH (16:30)
[2017-06-25 19:05] LABS: FECAL LEUKOCYTES NEGATIVE (NEGATIVE)
--- NOTE | 2017-06-26 01:25 | PN ---
DATE: 06/25/2017 SUBJECTIVE: Today, the patient was seen this morning. Denied any pain of the abdomen and any shortness of breath. No chest pain. No palpitations. The patient admitted having much less pain to the lower back. PHYSICAL EXAMINATION: VITAL SIGNS: The patient has blood pressure of 117/69, pulse 84, respirations 20, temperature 98.1. HEENT: Head is normocephalic. NECK: Supple. No JVD. LUNGS: Clear. HEART: Regular rate and rhythm. Positive murmur. ABDOMEN: Soft, obese, nontender. No palpable mass. Flank, no tenderness noted. EXTREMITIES: There is no edema. LABORATORY DATA: The patient today had some test done that showed the WBC is 10.2, hemoglobin is 15.5, hematocrit 44.3 and platelets 261. The chemistry showed sodium 146, potassium 3.8, chloride 101, bicarbonate is 29, BUN 20, creatinine 1.3 and glucose 149, calcium is 9.1. Also the patient today had a lumbar spine x-ray that has shown no acute fracture, but multilevel degenerative changes. The patient also had testicular ultrasound, that showed that ____ and no additional abnormality identified. PLAN: Discussed with Neville, the nurse practitioner and the patient will be discharged home on currently antibiotics and rest of the medications. Rell Hernández MD
--- NOTE | 2017-06-26 10:52 | DS ---
HOSPITAL COURSE: This patient is a 56 years old male with history of hypertension, hyperlipidemia and anxiety disorder. The patient came to the emergency room because the patient was complaining of pain in the abdomen and nausea and severe pain in the lower abdomen, and also patient complaining of pain to the back. The patient was evaluated in the emergency room, had tests done. The CAT scan was positive for acute sigmoid diverticulitis. So the patient was admitted to rule out flare, but however, I found the patient has a very elevated blood pressure in the range of 200. So the patient was transferred to the telemetry and received medications including hydralazine, Lopressor, Lasix and lisinopril. The patient also had some tests done that showed diverticulitis, also the lactase was slightly elevated. The patient has received medications and the abdominal tenderness disappeared, the pain of the back was persistent, but decreasing. So the patient had an x-ray of the back that showed multilevel degenerative changes and the patient at this point, the patient is able to eat well, no abdominal pain and will be able to be discharged home on medications including Flagyl and Augmentin. The case was discussed with Neville rod nurse practitioner. Rell Hernández MD
[2017-06-26 19:36] LABS: TOTAL PSA 3.3 ng/mL (< or = 4.0)
== END 2017-06-25 14:40 | disposition home or self-care (01) | DRG 183 ==
LOC: C.ER 20:55 → C.3T 23:23 → C.5S 06-23 19:10
PROVIDERS: ADMIT Specialist; ATTEND Specialist
DX: K57.32 Diverticulitis of large intestine without perforation or abscess without bleeding (principal); N40.0 Benign prostatic hyperplasia without lower urinary tract symptoms; I16.9 Hypertensive crisis, unspecified; F41.9 Anxiety disorder, unspecified; E78.5 Hyperlipidemia, unspecified; E11.9 Type 2 diabetes mellitus without complications; N43.3 Hydrocele, unspecified; M54.5 Low back pain; Z79.4 Long term (current) use of insulin; Z68.41 Body mass index [BMI] 40.0-44.9, adult